=== PATIENT | male | born 1995 | race Caucasian/White ===

== ENCOUNTER 2017-05-05 01:03 | Emergency (ER) | payer MEDICAID ==
[~2017-05-05] VITALS: Ht 172.7 cm; Wt 84.8 kg
[2017-05-05 01:05] VITALS: BP 121/68
--- NOTE | 2017-05-05 02:00 | NUR ---
To OF 2
--- NOTE | 2017-05-05 02:10 | NUR ---
21Y/M PT. PRESENTS TO ED WITH C/O LT.LEG NUMBNESS X 5 HRS. NO MEDICAL HX. AAO X 4 AMBULATORY WITH STEADY GAIT. RESPIRATIONS ROOM AIR, EVEN AND UNLABORED. SKIN WARM AND DRY. NO C/O PAIN AT THIS TIME. VSS, ER MADE AWARE OF PT. STATUS.
--- NOTE | 2017-05-05 02:15 | NUR ---
Patient being evaluated by DR. THAO at bedside.
--- NOTE | 2017-05-05 03:20 | NUR ---
Patient discharged with v/s stable. Written and verbal after care instructions given and explained. Patient verbalized understanding. Ambulatory with steady gait. All questions addressed prior to discharge. Advised to follow up with PMD.
[2017-05-05 03:25] VITALS: BP 115/70
== END 2017-05-05 03:25 | disposition home or self-care (01) ==
LOC: MED 01:03
DX: R20.8 Other disturbances of skin sensation (principal); M54.5 Low back pain
CPT/HCPCS: 72110; 99284

== ENCOUNTER 2023-10-29 19:16 | Emergency (ER) | payer MEDICAID ==
[~2023-10-29] VITALS: Ht 170.2 cm; Wt 85.3 kg
[2023-10-29 19:36] VITALS: BP 129/83; PULSE 104; RESP 16; TEMP 98.7; O2SAT 98
[2023-10-29] MEDS: KETOROLAC 30 MG/ML VIAL IM ONE (20:58)
[2023-10-29] MEDS ORDERED: NAPR-54 PO (21:09)
[2023-10-29 21:18] VITALS: BP 129/88; PULSE 89; RESP 16; TEMP 98.7; O2SAT 98
== END 2023-10-29 21:20 | disposition home or self-care (01) ==
LOC: MED 19:16
DX: Q53.112 Unilateral inguinal testis (principal); R20.2 Paresthesia of skin; Z79.899 Other long term (current) drug therapy
CPT/HCPCS: 96372; 99283; J1885